=== PATIENT | male | born 1995 | race Caucasian/White ===

== ENCOUNTER 2018-06-20 23:17 | Emergency (ER) | payer OTHER, SELFPAY ==
[2018-06-20 23:09] VITALS: BP 128/82; PULSE 87; RESP 14; TEMP 36.9; O2SAT 99
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
[2018-06-20] MEDS: KETOROLAC 60 MG/2 ML VIAL 30 MG IV (23:49)
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
[2018-06-21] MEDS: MORPHINE 2 MG/ML INJ IV (00:27)
[2018-06-21 00:30] VITALS: BP 124/61; PULSE 87; RESP 17; O2SAT 100
[2018-06-21 00:38] VITALS: BP 124/61; PULSE 87; RESP 18; O2SAT 100
[2018-06-21 00:57] LABS: Add Manual Diff / Slide Review NO; Basophils Percent Auto 0.2 % (0-2); Eosinophils Percent Auto 2.9 % (2-4); Hematocrit 46.7 % (41-53); Hemoglobin 16.3 g/dL (13.5-17.5); Mean Corpuscular HGB Conc 34.9 % (30-36); Mean Corpuscular Hemoglobin 31.1 PG (26-34); Monocytes Percent Auto 6.7 % (3-14); Neutrophils Absolute Auto 2400 /uL (3000-5900); Neutrophils Percent Auto 35.2 % (50-75); Platelet Count 195 X10^3/uL (150-400); Red Blood Cell Count 5.25 X10^6/uL (4.5-5.9); Red Cell Distribution Width 13.3 % (11.6-14.8); White Blood Cell Count 6.8 X10^3/uL (4.5-11.0)
[2018-06-21 01:00] LABS: Alanine Aminotransferase 45 IU/L (21-72); Albumin Globulin Ratio 1.6 (1.0-2.8); Alkaline Phosphatase 48 U/L (38-126); Amylase 65 U/L (30-110); Aspartate Aminotransferase 46 IU/L (17-59); BUN Creatinine Ratio 14.4 (6-22); Bilirubin Total 0.4 mg/dL (0.2-1.3); Blood Urea Nitrogen 13 mg/dL (9-20); Calcium 9.2 mg/dL (8.4-10.2); Carbon Dioxide 29 mmol/L (22-32); Chloride 101 mmol/L (98-107); Estimated Glomerular Filt Rate > 60.0 mL/min (>60); Ethanol (ETOH) 172 mg/dL; Globulin 3.1 g/dL (1.7-4.1); Glucose 102 mg/dL (70-100); HEMOLYSIS < 15 (0-50); Lipase 98 U/L (23-300); Sodium 149 mmol/L (137-145); Total Protein 8.1 g/dL (6.3-8.2)
[2018-06-21 01:01] VITALS: BP 123/67; PULSE 17; RESP 16; O2SAT 99
[2018-06-21] MEDS: MORPHINE 4 MG/ML INJ IV (01:39)
[2018-06-21 01:55] VITALS: BP 116/63; PULSE 77; RESP 12; O2SAT 99
[2018-06-21 02:28] VITALS: BP 117/63; PULSE 80; RESP 16; TEMP 36.9; O2SAT 97
== END 2018-06-21 02:28 | disposition home or self-care (01) ==
PROVIDERS: Emergency Provider Emergency Medicine
DX: S42.102A Fracture of unspecified part of scapula, left shoulder, initial encounter for closed fracture (principal); S22.32XA Fracture of one rib, left side, initial encounter for closed fracture; S06.0X9A Concussion with loss of consciousness of unspecified duration, initial encounter; S01.01XA Laceration without foreign body of scalp, initial encounter; V49.40XA Driver injured in collision with unspecified motor vehicles in traffic accident, initial encounter
CPT/HCPCS: 36591; 70450; 71045; 71260; 72125; 73030; 74177; 80053; 80320; 81003; 82150; 83690; 85025; 96374; 96375; 96376; 99282; 99285; 99291; J1885; J2270